=== PATIENT | female | born 1990 | race African-American/Black ===

== ENCOUNTER 2020-11-23 20:51 | Emergency (ER) | payer OTHER ==
[~2020-11-23] VITALS: Ht 157.5 cm; Wt 104.8 kg
[2020-11-23 20:54] VITALS: BP_SYST 122
[2020-11-23] MEDS: LevALBUTEROL HCL 1.25 MG/0.5 ML *CONC.* VIAL.NEB (XOPENEX CONC.) INH ONE (21:30)
[2020-11-23] MEDS ORDERED: DEXAMETHASONE SOD PHOSPHATE 10 MG/ML VIAL ONE (23:31)
[2020-11-23] MEDS: DEXAMETHASONE SOD PHOSPHATE 10 MG/ML VIAL IM ONE (23:31)
[2020-11-23] MEDS: IPRATROPIUM/ALBUTEROL SULFATE 3 ML AMPUL.NEB (DUONEB) INH ONE (23:59)
[2020-11-24] MEDS ORDERED: PRED20TA PO (01:37)
[2020-11-24] MEDS ORDERED: LORA10TA7 PO (01:37)
[2020-11-24] MEDS ORDERED: ALBMDI INH (01:37)
[2020-11-24 01:45] VITALS: BP_SYST 126
== END 2020-11-24 01:45 | disposition home or self-care (01) ==
LOC: SED 20:51
DX: J45.901 Unspecified asthma with (acute) exacerbation (principal); Z79.899 Other long term (current) drug therapy
CPT/HCPCS: 36415; 71045; 85379; 94640 ×2; 96372; 99285; J1100; J7612